=== PATIENT | male | born 1970 | race African-American/Black ===

== ENCOUNTER → 2017-09-22 | Outpatient (CLI) | payer OTHER | LOC: M.ULTRA 10:19 | DX: I10 Essential (primary) hypertension (principal) ==

== ENCOUNTER → 2021-04-27 | Outpatient (CLI) | payer OTHER | LOC: M.MRI 14:30 | PROVIDERS: ATTEND Family Medicine | DX: M48.02 Spinal stenosis, cervical region (principal); M47.812 Spondylosis without myelopathy or radiculopathy, cervical region; M50.30 Other cervical disc degeneration, unspecified cervical region; M99.71 Connective tissue and disc stenosis of intervertebral foramina of cervical region ==